=== PATIENT | male | born 1945 | race Caucasian/White ===

== ENCOUNTER 2021-11-26 18:46 | Inpatient (IN) | payer MEDICARE, OTHER ==
[~2021-11-26] VITALS: Ht 190.5 cm; Wt 67.2 kg
[2021-11-26 19:28] LABS: RED BLOOD COUNT 3.49 M/UL (4.20-5.50); WHITE BLOOD COUNT 8.7 K/UL (4.5-11.0)
[2021-11-26 19:44] LABS: BUN/CREATININE RATIO 17 (0-10)
[2021-11-27 02:30] LABS: BUN/CREATININE RATIO 18 (0-10)
[2021-11-28 02:57] LABS: BUN/CREATININE RATIO 15 (0-10)
[2021-11-28 12:05] LABS: BODY FLUID SOURCE BRONCH RIGHT LUNG
[2021-11-29 02:10] LABS: HEMOGLOBIN 8.4 gm/dl (14.0-17.5); RED BLOOD COUNT 2.83 M/UL (4.20-5.50); WHITE BLOOD COUNT 6.5 K/UL (4.5-11.0)
[2021-11-29 02:41] LABS: BUN/CREATININE RATIO 14 (0-10)
[2021-11-30 02:50] LABS: HEMOGLOBIN 8.7 gm/dl (14.0-17.5); RED BLOOD COUNT 3.01 M/UL (4.20-5.50); WHITE BLOOD COUNT 6.6 K/UL (4.5-11.0)
[2021-11-30 05:00] LABS: BUN/CREATININE RATIO 16 (0-10)
[2021-11-30] MEDS ORDERED: ASPIRIN81 MG PO (12:29)
[2021-11-30] MEDS ORDERED: FERROUS GLUCON324 M1 PO (12:29)
[2021-11-30] MEDS ORDERED: DIGOXIN125 MCG PO (12:29)
[2021-11-30] MEDS ORDERED: CYANOCOBAL1000 MCG/1 SC (12:29)
[2021-11-30] MEDS ORDERED: LEVOFLOXACIN500 MG PO (12:29)
[2021-11-30] MEDS ORDERED: FOLIC ACID 1 MG1 MG PO (12:29)
[2021-11-30] MEDS ORDERED: CYANOCOBAL1000 MCG/1 INJ (12:29)
[2021-11-30] MEDS ORDERED: LOPRESSOR 25 MG25 MG PO ×2 (12:29→12:32)
[2021-11-30] MEDS ORDERED: THERAGRAN M TAB1 EA PO (12:29)
[2021-11-30] MEDS ORDERED: COMBIVENT RESPIM4 GM INH (12:29)
[2021-11-30] MEDS ORDERED: VITAMIN D310 MC4 PO (12:46)
== END 2021-11-30 14:55 | disposition home or self-care (01) | DRG 166 ==
LOC: ER1 18:46 → CDU 20:32 → PROG CARE 20:32
PROVIDERS: Emergency Medicine; Internal Medicine; Internal Medicine Pulmonary Disease; ADMIT Internal Medicine Infectious Disease
PROC: 0BBC8ZX Excision of Right Upper Lung Lobe, Via Natural or Artificial Opening Endoscopic, Diagnostic (ICD-10-PCS; 2021-11-28)
PROC: 0B9C8ZX Drainage of Right Upper Lung Lobe, Via Natural or Artificial Opening Endoscopic, Diagnostic (ICD-10-PCS; 2021-11-28)
PROC: 07D78ZX Extraction of Thorax Lymphatic, Via Natural or Artificial Opening Endoscopic, Diagnostic (ICD-10-PCS; principal; 2021-11-28 08:00)
DX: C34.11 Malignant neoplasm of upper lobe, right bronchus or lung (principal); E43 Unspecified severe protein-calorie malnutrition; J18.9 Pneumonia, unspecified organism; J44.0 Chronic obstructive pulmonary disease with (acute) lower respiratory infection; I48.0 Paroxysmal atrial fibrillation; J44.9 Chronic obstructive pulmonary disease, unspecified; D50.9 Iron deficiency anemia, unspecified; D51.9 Vitamin B12 deficiency anemia, unspecified; E87.6 Hypokalemia; F17.200 Nicotine dependence, unspecified, uncomplicated; Z86.73 Personal history of transient ischemic attack (TIA), and cerebral infarction without residual deficits; Z20.822 Contact with and (suspected) exposure to COVID-19; E55.9 Vitamin D deficiency, unspecified
CPT/HCPCS: ECHO; 36415; 36600; 70450; 71045; 71250; 76000; 80048; 80053; 80061; 81001; 82550; 82553; 82607; 82746; 82803; 83540; 83605; 83735; 83880; 84439; 84443; 84484; 84550; 85025; 85045; 85610; 85730; 86140; 87015; 87040; 87070; 87116; 87205; 87206; 87252; 88172; 88341; 88342; 88360; 89051; 93005; 93306; 94664; 94760; 96361; 96372; 96374; 96375; 99285; G0378; J0171; J0692; J1160; J1650; J1756; J2405; J2704; J3420; J7030; J7040; U0002